=== PATIENT | female | born 1965 | race African-American/Black ===

== ENCOUNTER 2023-01-08 13:02 | Emergency (ER) | payer MEDICARE, OTHER ==
[~2023-01-08] VITALS: Ht 162.6 cm; Wt 63.0 kg
[2023-01-08 13:02] VITALS: BP 145/96
== END 2023-01-08 15:17 | disposition left against medical advice (07) ==
LOC: ER 13:02
DX: R04.0 Epistaxis (principal); Z53.21 Procedure and treatment not carried out due to patient leaving prior to being seen by health care provider